=== PATIENT | female | born 1955 | race Two or more races ===

== ENCOUNTER 2017-05-18 10:15 | Day surgery (SDC) | payer OTHER ==
[2017-05-18] VITALS (10 sets, daily range): BP systolic 132–149; BP diastolic 55–81; PULSE 56–86; RESP 12–22; Ht 170.2 cm; Wt 92.9 kg
[~2017-05-18] VITALS: Ht 170.2 cm; Wt 92.9 kg
[~2017-05-18 10:15] MED LIST: CEFAZOLIN 1 GM INJ ONE; CEFAZOLIN 2 GM/50 ML (PMX) 50 ML IVPB ONE; ROCURONIUM 50 MG INJ ONE; SOD CHLORIDE 0.9% 1,000 ML IV SCH
[2017-05-18] MEDS ORDERED: BUPIVACAINE 0.25% (MPF) 30 ML INJ ONE (12:07)
[2017-05-18] MEDS ORDERED: POLYMYXIN/BACITRACIN 1L IRRIG ONE (12:07)
[2017-05-18] MEDS ORDERED: ROPIVACAINE 0.2% 20 ML VIAL ONE (12:15)
[2017-05-18] MEDS ORDERED: METOCLOPRAMIDE 10 MG INJ ONE (12:15)
[2017-05-18] MEDS ORDERED: LIDOCAINE 2% (SDV) 5 ML INJ ONE (12:15)
[2017-05-18] MEDS ORDERED: PROPOFOL 20 ML ONE (12:15)
[2017-05-18] MEDS ORDERED: MIDAZOLAM 1 MG/ML 2 ML INJ ONE (12:15)
[2017-05-18] MEDS ORDERED: GLYCOPYRROLATE 0.4 MG INJ ONE (12:31)
[2017-05-18] MEDS ORDERED: NEOSTIGMINE 3 MG/3 ML SYRINGE ONE (12:31)
[2017-05-18] MEDS ORDERED: KETOROLAC 30 MG INJ ONE (12:31)
--- NOTE | 2017-05-18 13:17 | OPR ---
Date/Time of Note Date/Time of Note DATE: 05/18/17 TIME: 13:13 Operative Report Procedure Date: May 18, 2017 Preoperative Diagnosis incarcerated right sided ventral hernia Postoperative Diagnosis same Operation/Procedure Performed 1. large right abdominal incarcerated ventral hernia repair cpt code 48531 2. intraabdominal mesh implantation cpt code 06911 3. lysis of adhesions 4. therapeutic injection of subcutaneous local anesthesia cpt code 15479 Surgeon see signature line Supervisor Dog License Officer none Anesthesia Type: general Estimated Blood Loss: 10 - 50 ml's Transfusion none Specimen none Grafts/Implants none Complications none Pt Condition Post Procedure: stable Indications This is a 61-year-old female with a right lower abdominal ventral hernia. She requests surgical repair. Risks alternatives benefits and percent were discussed the patient. Patient expresses understanding consents to the operation. Procedure Description Patient is taken to the OR and prepped and draped in usual sterile fashion. Surgical timeout was performed. IV antibiotics given. Transverse incision is made in the right lower quadrant of the abdomen with a 10 blade. Dissection Carrs carried onto abdominal bulge. External oblique fascia is opened sharply with Metzenbaums and extended. A very large incarcerated hernia is identified. This area is reduced with extensive lysis of adhesions. The hernia defect is then reduced and additional lysis of adhesions was performed to allow freshening of the fascial edges. Underlay mesh with 10 x [address] mesh is secured in place with interrupted #1 Prolene. The intra-oblique is then sutured primarily with a running #1 Prolene. Externally fascia is closed a running #1 Vicryl. Skin was then closed with absorbable skin solomon. Therapeutic subcutaneous local anesthesia was injected throughout the incision site. Dry dressings were applied. Melba MCCALL May 18, 2017 13:17
[2017-05-18] MEDS ORDERED: ONDANSETRON 4 MG INJ ONE ×2 (13:18→13:32)
[2017-05-18] MEDS ORDERED: HYDROCODONE/APAP (5/325) TAB PO ONE (13:30)
[2017-05-18] MEDS ORDERED: DIPHENHYDRAMINE 50 MG INJ IV PRN (13:30)
[2017-05-18] MEDS ORDERED: ONDANSETRON 4 MG INJ IV PRN (13:30)
[2017-05-18] MEDS ORDERED: HYDROmorphONE (0.2 MG/ML) 10ML SYG IV PRN ×3 (13:30)
[2017-05-18] MEDS ORDERED: OXYCODONE/ACETAMINOPHEN (5/325) TAB PO PRN ×2 (13:30)
[2017-05-18] MEDS ORDERED: MEPERIDINE 25 MG INJ ONE (13:32)
[2017-05-18] MEDS: MEPERIDINE 25 MG INJ IV PRN ×2 (13:39→14:12)
== END 2017-05-18 15:15 | disposition home or self-care (01) ==
LOC: SDS 10:15
PROVIDERS: ATTEND Surgery
DX: K43.6 Other and unspecified ventral hernia with obstruction, without gangrene (principal)
CPT/HCPCS: 49561; 49568; C1781; J0690; J1885; J2175; J2250; J2405; J2710; J2765; J2795; Z7512; Z7610